=== PATIENT | female | born 1970 ===

== ENCOUNTER 2025-04-18 11:37 | Inpatient (IN) | payer OTHER ==
[~2025-04-18] VITALS: Ht 170.2 cm; Wt 0.5 kg
[2025-04-26] MEDS ORDERED: BUPIVACAINE HCL 30 ML VIAL IJ ONE (09:00)
[2025-04-26] MEDS ORDERED: METRONIDAZOLE/SODIUM CHLORIDE 500 MG/100 ML PIGGYBACK IV SCH ×2 (09:00→17:00)
[2025-04-26] MEDS ORDERED: CEFTRIAXONE SODIUM 2,000 MG VIAL IV SCH (09:00)
[2025-04-26] MEDS ORDERED: LIDOCAINE HCL 1%/EPINEPHRINE 10 ML VIAL IJ ONE (09:00)
[2025-04-26] MEDS ORDERED: DEXTROSE 50 % IN WATER 0.5 G/ML DISP.SYRIN IV PRN (10:30)
[2025-04-26] MEDS ORDERED: ONDANSETRON HCL 2 MG/ML VIAL IV PRN (10:30)
[2025-04-26] MEDS ORDERED: MORPHINE SULFATE 4 MG/ML CARTRIDGE IV PRN (10:30)
[2025-04-26] MEDS ORDERED: 0.9 % SODIUM CHLORIDE 1,000 ML IV SCH (10:30)
[2025-04-26] MEDS ORDERED: OxyCODONE HCL 5 MG TABLET (ROXICODONE) PO PRN (10:30)
[2025-04-26 12:16] LABS: BASO % 0.1 % (0.1-1.2); EOS # 0.00 (0.04-0.54); EOS % 0.0 % (0.7-7.0); LYMPH # 0.93 (1.18-3.74); LYMPH % 5.5 % (19.3-53.1); MEAN PLATELET VOLUME 10.50 fl (9.4-12.4); MONO # 0.78 (0.24-0.82); MONO % 4.6 % (4.7-12.5); NEUT # 15.10 (1.56-6.13); NEUT % 89.4 % (34.0-71.1); RED CELL DISTRIBUTION WIDTH 12.9 % (11.6-14.4)
[2025-04-26] MEDS ORDERED: HYOSCYAMINE SULFATE 0.125 MG TAB.SUBL SL SCH (13:00)
[2025-04-26 13:09] LABS: BUN CREA RATIO 9.0 (7.0-25.0); CREATININE SERUM 0.57 mg/dL (0.55-1.02); GFR 109.72; GLUCOSE FASTING 159.0 mg/dL (65-100); OSMOLALITY SERUM 282.0 MOSM/KG (275-295)
[2025-04-26] MEDS ORDERED: ACETAMINOPHEN 500 MG GEL..CAP PO SCH (14:00)
[2025-04-26] MEDS ORDERED: ONDANSETRON HCL 2 MG/ML VIAL ONE (14:14)
[2025-04-26] MEDS ORDERED: GABAPENTIN 300 MG CAPSULE PO SCH (17:00)
[2025-04-26] MEDS ORDERED: GABAPENTIN 300 MG CAPSULE PO ONE (17:08)
[2025-04-26] MEDS ORDERED: HYOSCYAMINE SULFATE 0.125 MG TAB.SUBL ONE (17:08)
[2025-04-26] MEDS ORDERED: METRONIDAZOLE/SODIUM CHLORIDE 500 MG/100 ML PIGGYBACK IV ONE (17:09)
[2025-04-26 18:14] VITALS: BP 140/76; O2SAT 96
[2025-04-26] MEDS ORDERED: FAMOTIDINE/PF 20 MG/2 ML VIAL IV PUSH SCH (21:00)
[2025-04-27] VITALS: BP 128/71; O2SAT 98
[2025-04-27 07:17] LABS: BASO % 0.2 % (0.1-1.2); EOS # 0.00 (0.04-0.54); EOS % 0.0 % (0.7-7.0); LYMPH # 2.38 (1.18-3.74); LYMPH % 20.9 % (19.3-53.1); MEAN PLATELET VOLUME 11.10 fl (9.4-12.4); MONO # 1.11 (0.24-0.82); MONO % 9.7 % (4.7-12.5); NEUT # 7.85 (1.56-6.13); NEUT % 68.8 % (34.0-71.1); RED CELL DISTRIBUTION WIDTH 13.1 % (11.6-14.4)
[2025-04-27 07:42] LABS: BUN CREA RATIO 7.0 (7.0-25.0); CREATININE SERUM 0.56 mg/dL (0.55-1.02); GFR 111.98; GLUCOSE FASTING 90.0 mg/dL (65-100); OSMOLALITY SERUM 278.0 MOSM/KG (275-295)
[2025-04-27 08:41] VITALS: BP 133/75; O2SAT 97
[2025-04-27 16:00] VITALS: BP 116/69; O2SAT 96
[2025-04-27] MEDS ORDERED: ENOXAPARIN SODIUM 40 MG/0.4 ML SYRINGE SUBCUTANEO SCH (17:00)
[2025-04-28] VITALS: BP 127/74; O2SAT 99
[2025-04-28 07:34] LABS: BASO % 0.2 % (0.1-1.2); EOS # 0.01 (0.04-0.54); EOS % 0.1 % (0.7-7.0); LYMPH # 2.46 (1.18-3.74); LYMPH % 20.4 % (19.3-53.1); MEAN PLATELET VOLUME 10.90 fl (9.4-12.4); MONO # 0.71 (0.24-0.82); MONO % 5.9 % (4.7-12.5); NEUT # 8.82 (1.56-6.13); NEUT % 73.2 % (34.0-71.1); RED CELL DISTRIBUTION WIDTH 13.3 % (11.6-14.4)
[2025-04-28 08:00] VITALS: BP 115/72; O2SAT 95
[2025-04-28 08:04] LABS: BUN CREA RATIO 5.0 (7.0-25.0); CREATININE SERUM 0.56 mg/dL (0.55-1.02); GFR 111.98; GLUCOSE FASTING 95.0 mg/dL (65-100); OSMOLALITY SERUM 283.0 MOSM/KG (275-295)
[2025-04-28] MEDS ORDERED: POTASSIUM PHOS,M-BASIC-D-BASIC 3 MM/ML VIAL IV NR (08:45)
[2025-04-28] MEDS ORDERED: ENOXAPARIN SODIUM 40 MG/0.4 ML SYRINGE SUBCUTANEO SCH (09:00)
[2025-04-28] MEDS ORDERED: POLYETHYLENE GLYCOL 3350 17 GM BLIST.PACK PO SCH (09:00)
[2025-04-28] MEDS ORDERED: METOCLOPRAMIDE HCL 10 MG in DEXTROSE 5 % IN WATER 50 ML IV SCH (12:00)
[2025-04-28 16:00] VITALS: BP 126/79; O2SAT 95
[2025-04-29] VITALS: BP 130/84; O2SAT 97
[2025-04-29 06:00] LABS: BASO % 0.1 % (0.1-1.2); EOS # 0.00 (0.04-0.54); EOS % 0.0 % (0.7-7.0); LYMPH # 0.69 (1.18-3.74); LYMPH % 8.1 % (19.3-53.1); MEAN PLATELET VOLUME 10.40 fl (9.4-12.4); MONO # 0.35 (0.24-0.82); MONO % 4.1 % (4.7-12.5); NEUT # 7.44 (1.56-6.13); NEUT % 87.2 % (34.0-71.1); RED CELL DISTRIBUTION WIDTH 13.2 % (11.6-14.4)
[2025-04-29 06:39] LABS: BUN CREA RATIO 6.0 (7.0-25.0); CREATININE SERUM 0.49 mg/dL (0.55-1.02); GFR 130.64; GLUCOSE FASTING 105.0 mg/dL (65-100); OSMOLALITY SERUM 280.0 MOSM/KG (275-295)
[2025-04-29 08:28] VITALS: BP 117/76; O2SAT 96
[2025-04-29 16:00] VITALS: BP 110/71; O2SAT 98
[2025-04-30] VITALS: BP 117/76; O2SAT 96
[2025-04-30 07:25] VITALS: BP 125/79; O2SAT 98
[2025-04-30] MEDS ORDERED: HYOSCYAMINE0.125 M1 SL (10:37)
[2025-04-30] MEDS ORDERED: PEPCID AC20 MG PO (10:37)
[2025-04-30] MEDS ORDERED: TRAM1TAB98 PO (10:38)
== END 2025-04-30 12:18 | disposition home or self-care (01) | DRG 331 ==
LOC: O/R 04-26 08:00 → SURH 04-26 11:45 → SURG 04-26 14:53
PROVIDERS: Internal Medicine Geriatric Medicine; Surgery; ADMIT Surgery; ATTEND Surgery
PROC: 07BB4ZZ Excision of Mesenteric Lymphatic, Percutaneous Endoscopic Approach (ICD-10-PCS; 2025-04-26)
PROC: 07BC4ZZ Excision of Pelvis Lymphatic, Percutaneous Endoscopic Approach (ICD-10-PCS; 2025-04-26)
PROC: 0DBL4ZZ Excision of Transverse Colon, Percutaneous Endoscopic Approach (ICD-10-PCS; 2025-04-26)
PROC: 0DTF4ZZ Resection of Right Large Intestine, Percutaneous Endoscopic Approach (ICD-10-PCS; principal; 2025-04-26 12:45)
DX: C18.4 Malignant neoplasm of transverse colon (principal); D12.3 Benign neoplasm of transverse colon; R59.0 Localized enlarged lymph nodes; R55 Syncope and collapse; R19.5 Other fecal abnormalities; Z88.6 Allergy status to analgesic agent; Z91.018 Allergy to other foods